=== PATIENT | male | born 1935 | race Caucasian/White ===

== ENCOUNTER 2023-03-21 11:28 | Inpatient (IN) | payer MEDICARE ==
[~2023-03-21] VITALS: Ht 172.7 cm; Wt 77.1 kg
[2023-03-21 12:33] LABS: BASOPHILS # (AUTO) 0.1 (0.0-0.1); BASOPHILS % 0.7 % (0.0-1.0); EOSINOPHILS # (AUTO) 0.1 (0.0-0.4); EOSINOPHILS % 0.5 % (0.0-6.0); HEMATOCRIT 44.9 % (38.2-49.6); HEMOGLOBIN 14.5 g/dL (14.0-18.0); LYMPHOCYTES # (AUTO) 3.3 (1.0-3.2); LYMPHOCYTES % 18.4 % (18.0-39.1); MEAN CORPUSCULAR HEMOGLOBIN 30.8 pg (28-32); MEAN CORPUSCULAR HGB CONC 32.3 g/dL (31-35); MEAN CORPUSCULAR VOLUME 95.3 fL (81-99); MONOCYTES # (AUTO) 1.3 (0.2-0.8); MONOCYTES % 7.2 % (4.4-11.3); NEUTROPHILS # (AUTO) 12.9 (2.1-6.9); NEUTROPHILS % 72.7 % (38.7-80.0); PLATELET COUNT 287 x10e3/uL (140-360); RED BLOOD COUNT 4.71 x10e6/uL (4.3-5.7); RED CELL DISTRIBUTION WIDTH 14.4 % (11.7-14.4)
[2023-03-21 12:45] LABS: ALBUMIN 3.5 g/dL (3.5-5.0); ALBUMIN/GLOBULIN RATIO 1.2 (0.8-2.0); ANION GAP 15.4 mmol/L (8-16); CALCIUM 9.8 mg/dL (8.4-10.2); CREATININE, SERUM 2.63 mg/dL (0.72-1.25); POTASSIUM 4.4 mmol/L (3.5-5.1)
[2023-03-21] MEDS ORDERED: SODIUM CHLORIDE FLUSH 10 ML SYR INJ PRN (14:00)
[2023-03-21] MEDS ORDERED: ONDANSETRON HCL INJ 2MG/ML 2ML 2 MG/ML VIAL IV PRN (14:00)
[2023-03-21 15:50] VITALS: BP 137/49; PULSE 59; RESP 18; TEMP 97.5; O2SAT 100
[2023-03-21 17:03] LABS: INR 2.08; PROTHROMBIN TIME 23.9 seconds (11.9-14.5)
[2023-03-21] MEDS ORDERED: METOPROLOL TART25 MG PO (17:30)
[2023-03-21] MEDS ORDERED: AMLODIPINE BESYL5 MG PO (17:30)
[2023-03-21] MEDS ORDERED: CALCITRIOL0.25 MCG PO (17:30)
[2023-03-21] MEDS ORDERED: WARFARIN SODIUM5 MG PO (17:30)
[2023-03-21] MEDS ORDERED: LEVOTHYROXINE50 MCG PO (17:30)
[2023-03-21] MEDS ORDERED: LASIX20 MG PO (17:30)
[2023-03-21] MEDS ORDERED: ARICEPT5 MG PO (17:36)
[2023-03-21] MEDS ORDERED: DOXYCYCLINE HY100 MG PO (17:36)
[2023-03-21] MEDS ORDERED: ULTRAM 50MG50 MG PO (17:36)
[2023-03-21] MEDS ORDERED: MUPIROCIN22 GM TOP (17:36)
[2023-03-21] MEDS ORDERED: ALLOPURINOL100 MG PO (17:36)
[2023-03-21] MEDS ORDERED: TYLENOL325 MG PO (17:36)
[2023-03-21] MEDS ORDERED: ATORVASTATIN CA40 MG PO (17:36)
[2023-03-21 17:53] VITALS: BP 153/65; PULSE 59; RESP 18; TEMP 97.5; O2SAT 100
[2023-03-21] MEDS ORDERED: ACETAMINOPHEN 325 MG TAB PO PRN (20:15)
[2023-03-21 20:50] VITALS: BP 153/65; PULSE 59; RESP 18; TEMP 97.5; O2SAT 100
[2023-03-21 21:09] VITALS: BP 142/62; PULSE 62; RESP 18; TEMP 98.2; O2SAT 100
[2023-03-21] MEDS: ATORVASTATIN 40 MG TAB PO SCH (22:09)
[2023-03-21] MEDS: CALCITRIOL 0.25 MCG CAP PO SCH (22:09)
[2023-03-21] MEDS: WARFARIN SOD 5 MG TAB PO SCH (22:10)
[2023-03-21] MEDS: TRAMADOL HCL 50 MG TAB PO PRN (22:10)
[2023-03-21] MEDS: AMLODIPINE BESYLATE 5 MG TAB PO SCH (22:10)
[2023-03-21] MEDS: DONEPEZIL HCL 5 MG TAB PO SCH (22:11)
[2023-03-21] MEDS: ALLOPURINOL 100 MG TAB PO SCH (22:11)
[2023-03-21] MEDS: DOXYCYCLINE HYCLATE TABLET 100 MG TAB PO SCH (22:11)
[2023-03-21] MEDS: FUROSEMIDE 20 MG TAB PO SCH (22:11)
[2023-03-21] MEDS: METOPROLOL TARTRATE 25 MG TAB PO SCH (22:12)
[2023-03-22] VITALS (11 sets, daily range): BP systolic 128–161; BP diastolic 49–84; PULSE 57–81; RESP 16–19; TEMP 97.5–98.2; O2SAT 97–100
[2023-03-22] MEDS: LEVOTHYROXINE SODIUM 50 MCG TAB PO SCH ×2 (05:39→09:07)
[2023-03-22 06:06] LABS: BASOPHILS # (AUTO) 0.1 (0.0-0.1); BASOPHILS % 0.7 % (0.0-1.0); EOSINOPHILS # (AUTO) 0.1 (0.0-0.4); EOSINOPHILS % 0.3 % (0.0-6.0); HEMATOCRIT 45.4 % (38.2-49.6); HEMOGLOBIN 14.6 g/dL (14.0-18.0); LYMPHOCYTES # (AUTO) 3.3 (1.0-3.2); LYMPHOCYTES % 20.3 % (18.0-39.1); MEAN CORPUSCULAR HEMOGLOBIN 31.5 pg (28-32); MEAN CORPUSCULAR HGB CONC 32.2 g/dL (31-35); MEAN CORPUSCULAR VOLUME 97.8 fL (81-99); MONOCYTES % 6.1 % (4.4-11.3); NEUTROPHILS # (AUTO) 11.8 (2.1-6.9); NEUTROPHILS % 72.3 % (38.7-80.0); PLATELET COUNT 257 x10e3/uL (140-360); RED BLOOD COUNT 4.64 x10e6/uL (4.3-5.7); RED CELL DISTRIBUTION WIDTH 14.3 % (11.7-14.4)
[2023-03-22 06:37] LABS: ALBUMIN 3.5 g/dL (3.5-5.0); ALBUMIN/GLOBULIN RATIO 1.3 (0.8-2.0); ANION GAP 15.3 mmol/L (8-16); CALCIUM 9.6 mg/dL (8.4-10.2); CREATININE, SERUM 2.42 mg/dL (0.72-1.25); POTASSIUM 4.3 mmol/L (3.5-5.1)
[2023-03-22 07:21] LABS: FREE THYROXINE INDEX 2.7839 (1.4-3.8); THYROID STIMULATING HORMONE 2.318 uIU/mL (0.350-4.940)
[2023-03-22] MEDS: MUPIROCIN 2% OINT 22 GM TUBE TOP SCH ×2 (09:07→19:01)
[2023-03-22] MEDS: DOXYCYCLINE HYCLATE TABLET 100 MG TAB PO SCH ×2 (09:07→19:00)
[2023-03-22] MEDS: AMLODIPINE BESYLATE 5 MG TAB PO SCH (09:07)
[2023-03-22] MEDS: CALCITRIOL 0.25 MCG CAP PO SCH (09:07)
[2023-03-22] MEDS: ALLOPURINOL 100 MG TAB PO SCH (09:07)
[2023-03-22] MEDS: FUROSEMIDE 20 MG TAB PO SCH (09:07)
[2023-03-22] MEDS: METOPROLOL TARTRATE 25 MG TAB PO SCH ×2 (09:08→19:01)
[2023-03-22 16:27] LABS: ANION GAP 16.1 mmol/L (8-16); CALCIUM 9.6 mg/dL (8.4-10.2); CREATININE, SERUM 2.49 mg/dL (0.72-1.25); POTASSIUM 4.1 mmol/L (3.5-5.1)
[2023-03-22] MEDS: WARFARIN SOD 5 MG TAB PO SCH (19:00)
[2023-03-22] MEDS: TRAMADOL HCL 50 MG TAB PO PRN (21:26)
[2023-03-22] MEDS: ATORVASTATIN 40 MG TAB PO SCH (21:32)
[2023-03-22] MEDS: DONEPEZIL HCL 5 MG TAB PO SCH (21:48)
[2023-03-23] VITALS (9 sets, daily range): BP systolic 110–134; BP diastolic 60–83; PULSE 59–68; RESP 16–18; TEMP 97.4–98.1; O2SAT 97–100
[2023-03-23 09:32] LABS: BASOPHILS # (AUTO) 0.1 (0.0-0.1); BASOPHILS % 0.5 % (0.0-1.0); EOSINOPHILS % 0.2 % (0.0-6.0); HEMATOCRIT 44.9 % (38.2-49.6); HEMOGLOBIN 14.2 g/dL (14.0-18.0); LYMPHOCYTES # (AUTO) 3.3 (1.0-3.2); LYMPHOCYTES % 17.6 % (18.0-39.1); MEAN CORPUSCULAR HEMOGLOBIN 31.1 pg (28-32); MEAN CORPUSCULAR HGB CONC 31.6 g/dL (31-35); MEAN CORPUSCULAR VOLUME 98.5 fL (81-99); MONOCYTES # (AUTO) 1.5 (0.2-0.8); MONOCYTES % 7.8 % (4.4-11.3); NEUTROPHILS # (AUTO) 13.7 (2.1-6.9); NEUTROPHILS % 73.4 % (38.7-80.0); PLATELET COUNT 210 x10e3/uL (140-360); RED BLOOD COUNT 4.56 x10e6/uL (4.3-5.7); RED CELL DISTRIBUTION WIDTH 14.2 % (11.7-14.4)
[2023-03-23 09:51] LABS: ALBUMIN 3.1 g/dL (3.5-5.0); ALBUMIN/GLOBULIN RATIO 1.2 (0.8-2.0); ANION GAP 17.2 mmol/L (8-16); CALCIUM 9.3 mg/dL (8.4-10.2); CREATININE, SERUM 2.61 mg/dL (0.72-1.25); POTASSIUM 4.2 mmol/L (3.5-5.1)
[2023-03-23] MEDS: FUROSEMIDE 20 MG TAB PO SCH (10:01)
[2023-03-23] MEDS: CALCITRIOL 0.25 MCG CAP PO SCH (10:01)
[2023-03-23] MEDS: ALLOPURINOL 100 MG TAB PO SCH (10:01)
[2023-03-23] MEDS: LEVOTHYROXINE SODIUM 50 MCG TAB PO SCH (10:01)
[2023-03-23] MEDS: DOXYCYCLINE HYCLATE TABLET 100 MG TAB PO SCH ×2 (10:01→17:33)
[2023-03-23] MEDS: METOPROLOL TARTRATE 25 MG TAB PO SCH ×2 (10:02→17:33)
[2023-03-23] MEDS: AMLODIPINE BESYLATE 5 MG TAB PO SCH (10:02)
[2023-03-23] MEDS: MUPIROCIN 2% OINT 22 GM TUBE TOP SCH ×2 (10:03→17:42)
[2023-03-23] MEDS ORDERED: ONDANSETRON HCL 4 MG ORAL DISINTEGRATING TAB PO PRN (13:00)
[2023-03-23] MEDS: WARFARIN SOD 5 MG TAB PO SCH (17:34)
[2023-03-23] MEDS: TRAMADOL HCL 50 MG TAB PO PRN (17:36)
[2023-03-23] MEDS: SODIUM CHLORIDE 0.9% 1000ML 1,000 ML IV SCH (17:36)
[2023-03-23] MEDS: DONEPEZIL HCL 5 MG TAB PO SCH (21:00)
[2023-03-23] MEDS: ATORVASTATIN 40 MG TAB PO SCH (21:00)
[2023-03-24] VITALS (8 sets, daily range): BP systolic 109–143; BP diastolic 57–78; PULSE 59–72; RESP 18–22; TEMP 97.1–98.6; O2SAT 97–100
[2023-03-24] MEDS: SODIUM CHLORIDE 0.9% 1000ML 1,000 ML IV SCH ×3 (05:09→20:00)
[2023-03-24 06:57] LABS: ALBUMIN 3.1 g/dL (3.5-5.0); ALBUMIN/GLOBULIN RATIO 1.2 (0.8-2.0); ANION GAP 15.1 mmol/L (8-16); CALCIUM 9.1 mg/dL (8.4-10.2); CREATININE, SERUM 2.55 mg/dL (0.72-1.25); POTASSIUM 4.1 mmol/L (3.5-5.1)
[2023-03-24 07:15] LABS: INR 4.6
[2023-03-24 07:18] LABS: PROTHROMBIN TIME 43.5 seconds (11.9-14.5)
[2023-03-24] MEDS: LEVOTHYROXINE SODIUM 50 MCG TAB PO SCH (08:27)
[2023-03-24] MEDS: METOPROLOL TARTRATE 25 MG TAB PO SCH ×2 (08:27→16:56)
[2023-03-24] MEDS: AMLODIPINE BESYLATE 5 MG TAB PO SCH (08:27)
[2023-03-24] MEDS: CALCITRIOL 0.25 MCG CAP PO SCH (08:27)
[2023-03-24] MEDS: TRAMADOL HCL 50 MG TAB PO PRN (08:27)
[2023-03-24] MEDS: ALLOPURINOL 100 MG TAB PO SCH (08:28)
[2023-03-24] MEDS: FUROSEMIDE 20 MG TAB PO SCH (08:28)
[2023-03-24] MEDS: DOXYCYCLINE HYCLATE TABLET 100 MG TAB PO SCH ×2 (08:28→16:56)
[2023-03-24] MEDS: MUPIROCIN 2% OINT 22 GM TUBE TOP SCH ×2 (08:33→16:59)
[2023-03-24 08:47] LABS: BASOPHILS # (AUTO) 0.1 (0.0-0.1); BASOPHILS % 0.5 % (0.0-1.0); EOSINOPHILS # (AUTO) 0.1 (0.0-0.4); EOSINOPHILS % 0.3 % (0.0-6.0); HEMATOCRIT 43.5 % (38.2-49.6); HEMOGLOBIN 14.3 g/dL (14.0-18.0); LYMPHOCYTES # (AUTO) 3.1 (1.0-3.2); MEAN CORPUSCULAR HGB CONC 32.9 g/dL (31-35); MEAN CORPUSCULAR VOLUME 94.4 fL (81-99); MONOCYTES # (AUTO) 1.6 (0.2-0.8); MONOCYTES % 7.1 % (4.4-11.3); NEUTROPHILS # (AUTO) 17.1 (2.1-6.9); NEUTROPHILS % 77.6 % (38.7-80.0); PLATELET COUNT 256 x10e3/uL (140-360); RED BLOOD COUNT 4.61 x10e6/uL (4.3-5.7); RED CELL DISTRIBUTION WIDTH 14.2 % (11.7-14.4)
[2023-03-24 10:24] LABS: LYMPHOCYTES % (MANUAL) 14 % (19-48); MONOCYTES % (MANUAL) 10 % (3.4-9.0); NEUTROPHILS % (MANUAL) 76 % (40-74); PLATELET ESTIMATE ADEQUATE; PLATELET MORPHOLOGY COMMENT NORMAL; RBC MORPHOLOGY COMMENT NORMAL
[2023-03-24] MEDS: ATORVASTATIN 40 MG TAB PO SCH (22:37)
[2023-03-24] MEDS: DONEPEZIL HCL 5 MG TAB PO SCH (22:37)
[2023-03-25] VITALS (8 sets, daily range): BP systolic 120–137; BP diastolic 60–80; PULSE 60–77; RESP 16–18; TEMP 97.4–98.6; O2SAT 98–100
[2023-03-25 05:35] LABS: BASOPHILS # (AUTO) 0.1 (0.0-0.1); BASOPHILS % 0.7 % (0.0-1.0); EOSINOPHILS # (AUTO) 0.2 (0.0-0.4); HEMATOCRIT 41.9 % (38.2-49.6); HEMOGLOBIN 13.8 g/dL (14.0-18.0); LYMPHOCYTES # (AUTO) 3.8 (1.0-3.2); LYMPHOCYTES % 20.6 % (18.0-39.1); MEAN CORPUSCULAR HEMOGLOBIN 30.7 pg (28-32); MEAN CORPUSCULAR HGB CONC 32.9 g/dL (31-35); MEAN CORPUSCULAR VOLUME 93.1 fL (81-99); MONOCYTES # (AUTO) 1.7 (0.2-0.8); MONOCYTES % 9.3 % (4.4-11.3); NEUTROPHILS # (AUTO) 12.5 (2.1-6.9); PLATELET COUNT 244 x10e3/uL (140-360)
[2023-03-25 05:50] LABS: ANION GAP 11.7 mmol/L (8-16); CALCIUM 8.9 mg/dL (8.4-10.2); CREATININE, SERUM 1.98 mg/dL (0.72-1.25); POTASSIUM 3.7 mmol/L (3.5-5.1)
[2023-03-25] MEDS: METOPROLOL TARTRATE 25 MG TAB PO SCH ×2 (09:44→17:22)
[2023-03-25] MEDS: CALCITRIOL 0.25 MCG CAP PO SCH (09:44)
[2023-03-25] MEDS: AMLODIPINE BESYLATE 5 MG TAB PO SCH (09:44)
[2023-03-25] MEDS: SODIUM CHLORIDE 0.9% 1000ML 1,000 ML IV SCH ×2 (09:45→19:12)
[2023-03-25] MEDS: DOXYCYCLINE HYCLATE TABLET 100 MG TAB PO SCH ×2 (09:45→17:21)
[2023-03-25] MEDS: ALLOPURINOL 100 MG TAB PO SCH (09:45)
[2023-03-25] MEDS: MUPIROCIN 2% OINT 22 GM TUBE TOP SCH ×2 (09:45→17:22)
[2023-03-25] MEDS: DONEPEZIL HCL 5 MG TAB PO SCH (20:00)
[2023-03-25] MEDS: ATORVASTATIN 40 MG TAB PO SCH (20:01)
[2023-03-26] VITALS (8 sets, daily range): BP systolic 129–162; BP diastolic 57–91; PULSE 59–90; RESP 18–20; TEMP 97.4–98.2; O2SAT 93–100
[2023-03-26] MEDS: SODIUM CHLORIDE 0.9% 1000ML 1,000 ML IV SCH ×3 (05:34→22:00)
[2023-03-26 06:14] LABS: BASOPHILS # (AUTO) 0.1 (0.0-0.1); BASOPHILS % 0.8 % (0.0-1.0); EOSINOPHILS # (AUTO) 0.4 (0.0-0.4); EOSINOPHILS % 2.1 % (0.0-6.0); HEMATOCRIT 43.4 % (38.2-49.6); HEMOGLOBIN 14.2 g/dL (14.0-18.0); LYMPHOCYTES # (AUTO) 3.7 (1.0-3.2); LYMPHOCYTES % 21.8 % (18.0-39.1); MEAN CORPUSCULAR HEMOGLOBIN 31.4 pg (28-32); MEAN CORPUSCULAR HGB CONC 32.7 g/dL (31-35); MONOCYTES # (AUTO) 1.6 (0.2-0.8); MONOCYTES % 9.5 % (4.4-11.3); NEUTROPHILS # (AUTO) 11.1 (2.1-6.9); NEUTROPHILS % 65.5 % (38.7-80.0); PLATELET COUNT 223 x10e3/uL (140-360); RED BLOOD COUNT 4.52 x10e6/uL (4.3-5.7); RED CELL DISTRIBUTION WIDTH 14.1 % (11.7-14.4)
[2023-03-26 06:45] LABS: ANION GAP 14.9 mmol/L (8-16); CALCIUM 8.8 mg/dL (8.4-10.2); CREATININE, SERUM 1.59 mg/dL (0.72-1.25); POTASSIUM 3.9 mmol/L (3.5-5.1)
[2023-03-26] MEDS: AMLODIPINE BESYLATE 5 MG TAB PO SCH (08:10)
[2023-03-26] MEDS: DOXYCYCLINE HYCLATE TABLET 100 MG TAB PO SCH ×2 (08:11→17:18)
[2023-03-26] MEDS: ALLOPURINOL 100 MG TAB PO SCH (08:11)
[2023-03-26] MEDS: CALCITRIOL 0.25 MCG CAP PO SCH (08:11)
[2023-03-26] MEDS: METOPROLOL TARTRATE 25 MG TAB PO SCH ×2 (08:11→17:17)
[2023-03-26] MEDS: LEVOTHYROXINE SODIUM 50 MCG TAB PO SCH (08:11)
[2023-03-26] MEDS: MUPIROCIN 2% OINT 22 GM TUBE TOP SCH ×2 (08:31→17:18)
[2023-03-26] MEDS: DONEPEZIL HCL 5 MG TAB PO SCH (21:55)
[2023-03-26] MEDS: ATORVASTATIN 40 MG TAB PO SCH (21:55)
[2023-03-27] VITALS: BP 122/70; PULSE 60; RESP 18; TEMP 98; O2SAT 100
[2023-03-27 04:00] VITALS: BP 142/69; PULSE 65; RESP 18; TEMP 97.7; O2SAT 97
[2023-03-27 05:47] LABS: BASOPHILS # (AUTO) 0.1 (0.0-0.1); BASOPHILS % 0.8 % (0.0-1.0); EOSINOPHILS # (AUTO) 0.4 (0.0-0.4); EOSINOPHILS % 2.2 % (0.0-6.0); HEMOGLOBIN 13.3 g/dL (14.0-18.0); LYMPHOCYTES # (AUTO) 3.1 (1.0-3.2); LYMPHOCYTES % 19.9 % (18.0-39.1); MEAN CORPUSCULAR HGB CONC 33.3 g/dL (31-35); MEAN CORPUSCULAR VOLUME 93.2 fL (81-99); MONOCYTES # (AUTO) 1.4 (0.2-0.8); MONOCYTES % 8.7 % (4.4-11.3); NEUTROPHILS # (AUTO) 10.6 (2.1-6.9); PLATELET COUNT 220 x10e3/uL (140-360); RED BLOOD COUNT 4.29 x10e6/uL (4.3-5.7); RED CELL DISTRIBUTION WIDTH 13.8 % (11.7-14.4)
[2023-03-27 06:29] LABS: ANION GAP 10.2 mmol/L (8-16); CALCIUM 8.6 mg/dL (8.4-10.2); CREATININE, SERUM 1.47 mg/dL (0.72-1.25); POTASSIUM 4.2 mmol/L (3.5-5.1)
[2023-03-27] MEDS: AMLODIPINE BESYLATE 5 MG TAB PO SCH (07:56)
[2023-03-27] MEDS: ALLOPURINOL 100 MG TAB PO SCH (07:56)
[2023-03-27] MEDS: LEVOTHYROXINE SODIUM 50 MCG TAB PO SCH (07:56)
[2023-03-27] MEDS: METOPROLOL TARTRATE 25 MG TAB PO SCH (07:57)
[2023-03-27] MEDS: DOXYCYCLINE HYCLATE TABLET 100 MG TAB PO SCH (07:57)
[2023-03-27] MEDS: CALCITRIOL 0.25 MCG CAP PO SCH (07:57)
[2023-03-27] MEDS: SODIUM CHLORIDE 0.9% 1000ML 1,000 ML IV SCH (08:00)
[2023-03-27 08:31] VITALS: BP 147/70; PULSE 61; RESP 18; TEMP 98; O2SAT 100
[2023-03-27 09:23] VITALS: BP 147/70; PULSE 61; RESP 18; TEMP 98; O2SAT 100
== END 2023-03-27 09:03 | disposition home or self-care (01) | DRG 872 ==
LOC: ER 11:32 → EDBD 11:32 → ERHOLD 13:49 → MED/SURG2 15:54
PROVIDERS: ADMIT Family Medicine; ATTEND Family Medicine
DX: A41.9 Sepsis, unspecified organism (principal); N17.9 Acute kidney failure, unspecified; N18.4 Chronic kidney disease, stage 4 (severe); G93.40 Encephalopathy, unspecified; N12 Tubulo-interstitial nephritis, not specified as acute or chronic; I44.7 Left bundle-branch block, unspecified; C44.41 Basal cell carcinoma of skin of scalp and neck; R56.9 Unspecified convulsions; N40.0 Benign prostatic hyperplasia without lower urinary tract symptoms; G30.9 Alzheimer's disease, unspecified; F02.80 Dementia in other diseases classified elsewhere, unspecified severity, without behavioral disturbance, psychotic disturbance, mood disturbance, and anxiety; I12.9 Hypertensive chronic kidney disease with stage 1 through stage 4 chronic kidney disease, or unspecified chronic kidney disease; M10.9 Gout, unspecified; I48.0 Paroxysmal atrial fibrillation; E78.5 Hyperlipidemia, unspecified; E03.9 Hypothyroidism, unspecified; N15.9 Renal tubulo-interstitial disease, unspecified; Z95.810 Presence of automatic (implantable) cardiac defibrillator; Z79.01 Long term (current) use of anticoagulants
CPT/HCPCS: 36415; 70450; 70490; 71045; 76770; 80048; 80053; 82140; 82607; 82948; 83605; 84425; 84436; 84443; 84479; 85025; 85610; 87040; 87086; 93005; 95819; 99284; J0696; J2543; J3411; J7030